=== PATIENT | female | born 1970 | race Hispanic/Latino ===

== ENCOUNTER 2022-05-13 19:52 | Emergency (ER) | payer BC ==
[~2022-05-13] VITALS: Ht 154.9 cm; Wt 77.1 kg
[2022-05-13] MEDS ORDERED: KETOROLAC TROMETHAMINE 60 MG/2 ML VIAL IM ONE (20:30)
[2022-05-13] MEDS ORDERED: ORPHENADRINE CITRATE 30 MG/ML VIAL IM ONE (20:30)
[2022-05-13 20:32] LABS: CLARITY,URINE CLEAR (CLEAR); COLOR,URINE YELLOW (YELLOW)
[2022-05-13 20:33] LABS: KETONES,URINE NEGATIVE (NEGATIVE); LEUKOCYTE ESTERASE ,URINE NEGATIVE (NEGATIVE); NITRITE,URINE NEGATIVE (NEGATIVE); PROTEIN,URINE DIPSTICK NEGATIVE (NEGATIVE); URINE UROBILINOGEN 0.2 mg/dL (0.2 - 1)
[2022-05-13 20:38] LABS: BACTERIA,URINE FEW /HPF; EPITHELIAL CELLS,URINE FEW /LPF; RBC,URINE 0-5 /HPF (0-5); WBC,URINE (MAN) 0-5 /HPF (0-5)
[2022-05-13 20:40] LABS: CALCIUM OXALATE CRYSTALS,UR MANY (FEW)
== END 2022-05-13 21:54 | disposition home or self-care (01) ==
LOC: ER 20:10
DX: M54.41 Lumbago with sciatica, right side (principal); F32.A Depression, unspecified; R51.9 Headache, unspecified; Z98.84 Bariatric surgery status
CPT/HCPCS: 74176; 81001; 99283; J1885; J2360

== ENCOUNTER 2022-08-21 14:00 | Emergency (ER) | payer BC ==
[~2022-08-21] VITALS: Ht 154.9 cm; Wt 77.1 kg
[2022-08-21] MEDS ORDERED: MUCINEX DM ER1 EACH PO (15:53)
== END 2022-08-21 15:59 | disposition home or self-care (01) ==
LOC: ER 14:18
DX: R05.9 Cough, unspecified (principal); J06.9 Acute upper respiratory infection, unspecified; F32.A Depression, unspecified; Z20.822 Contact with and (suspected) exposure to COVID-19; Z98.84 Bariatric surgery status
CPT/HCPCS: 71045; 99283; U0002

== ENCOUNTER → 2022-09-16 | Day surgery (SDC) | payer BC ==
[2022-09-13 10:01] LABS: BASOPHILS % 0.4 % (0.0-1.0); EOSINOPHILS # (AUTO) 0.1 (0.0-0.4); EOSINOPHILS % 1.9 % (0.0-6.0); HEMATOCRIT 40.2 % (34.2-44.1); HEMOGLOBIN 12.6 g/dL (12.0-16.0); LYMPHOCYTES # (AUTO) 1.5 (1.0-3.2); LYMPHOCYTES % 30.6 % (18.0-39.1); MEAN CORPUSCULAR HEMOGLOBIN 29.9 pg (28-32); MEAN CORPUSCULAR HGB CONC 31.3 g/dL (31-35); MEAN CORPUSCULAR VOLUME 95.5 fL (81-99); MONOCYTES # (AUTO) 0.3 (0.2-0.8); MONOCYTES % 7.1 % (4.4-11.3); NEUTROPHILS # (AUTO) 2.9 (2.1-6.9); NEUTROPHILS % 59.8 % (38.7-80.0); PLATELET COUNT 255 x10e3/uL (140-360); RED BLOOD COUNT 4.21 x10e6/uL (3.6-5.1); RED CELL DISTRIBUTION WIDTH 12.8 % (11.7-14.4)
[2022-09-13 10:16] LABS: ANION GAP 15.1 mmol/L (8-16); CALCIUM 8.9 mg/dL (8.4-10.2); CREATININE, SERUM 0.73 mg/dL (0.57-1.11); POTASSIUM 4.1 mmol/L (3.5-5.1)
[~2022-09-16] MED LIST: ACCRUFER30 MG PO; CEFTRIAXONE 1 GM VIAL ONE; DEXAMETHASONE SOD PHOS INJ 4 MG/ML SDV ONE; FENTANYL CITRATE/PF 100MCG/2 ML INJ ONE; GABAPENTIN300 MG PO; IOPAMIDOL 610MG/1ML 300 MG/ML VIAL IV ONE; KETOROLAC TROME10 MG PO; LIDOCAINE HCL 2% LOCAL INJ 5 ML SDV VIAL INJ ONE; MEPERIDINE HCL INJ 25 MG/ML VIAL ONE; METHOCARBAMOL750 MG PO; METOCLOPRAMIDE HCL 10 MG/2ML VIAL ONE; MIDAZOLAM HCL 2 MG/2 ML VIAL ONE; MUCINEX DM ER1 EACH PO; ONDANSETRON HCL INJ 2MG/ML 2ML 2 MG/ML VIAL ONE; PHENAZOPYRIDINE HCL 100 MG TAB ONE; PROPOFOL IV EMULSION 10 MG/ML 20 ML VIAL ONE
[2022-09-16 14:12] VITALS: BP 136/87
== END | disposition home or self-care (01) ==
LOC: OR 10:56
PROVIDERS: ATTEND Urology
DX: N30.10 Interstitial cystitis (chronic) without hematuria (principal); N81.10 Cystocele, unspecified; N81.6 Rectocele; N36.41 Hypermobility of urethra; N28.1 Cyst of kidney, acquired; D64.9 Anemia, unspecified; I10 Essential (primary) hypertension; F32.A Depression, unspecified; Z01.810 Encounter for preprocedural cardiovascular examination; Z01.812 Encounter for preprocedural laboratory examination; Z79.899 Other long term (current) drug therapy
CPT/HCPCS: 36415; 52260; 74420; 80048; 81025; 85025; 93005; C1758; J0696; J1100; J2001; J2175; J2250; J2405; J2704; J2765; J3010; Q9967

== ENCOUNTER 2022-10-10 15:20 | Emergency (ER) | payer BC ==
[~2022-10-10] VITALS: Ht 154.9 cm; Wt 77.1 kg
[~2022-10-10 15:20] MED LIST changes: -CEFTRIAXONE 1 GM VIAL ONE; -DEXAMETHASONE SOD PHOS INJ 4 MG/ML SDV ONE; -FENTANYL CITRATE/PF 100MCG/2 ML INJ ONE; -GABAPENTIN300 MG PO; -IOPAMIDOL 610MG/1ML 300 MG/ML VIAL IV ONE; -KETOROLAC TROME10 MG PO; -LIDOCAINE HCL 2% LOCAL INJ 5 ML SDV VIAL INJ ONE; -MEPERIDINE HCL INJ 25 MG/ML VIAL ONE; -METHOCARBAMOL750 MG PO; -METOCLOPRAMIDE HCL 10 MG/2ML VIAL ONE; -MIDAZOLAM HCL 2 MG/2 ML VIAL ONE; -ONDANSETRON HCL INJ 2MG/ML 2ML 2 MG/ML VIAL ONE; -PHENAZOPYRIDINE HCL 100 MG TAB ONE; -PROPOFOL IV EMULSION 10 MG/ML 20 ML VIAL ONE
[2022-10-10] MEDS ORDERED: KETOROLAC TROMETHAMINE 30 MG/ML VIAL IM STA (15:42)
[2022-10-10] MEDS ORDERED: DEXAMETHASONE SOD PHOS 10 MG/1 ML VIAL IM ONE (15:45)
[2022-10-10] MEDS ORDERED: DEXAMETHASONE SOD PHOS 10 MG/1 ML VIAL ONE (15:55)
[2022-10-10] MEDS ORDERED: GABAPENTIN300 MG PO (15:55)
[2022-10-10] MEDS ORDERED: KETOROLAC TROME10 MG PO (15:55)
[2022-10-10] MEDS ORDERED: METHOCARBAMOL750 MG PO (15:55)
[2022-10-10] MEDS ORDERED: KETOROLAC TROMETHAMINE 30 MG/ML VIAL ONE (15:56)
== END 2022-10-10 15:59 | disposition home or self-care (01) ==
LOC: ER 15:39
DX: M54.41 Lumbago with sciatica, right side (principal); M54.12 Radiculopathy, cervical region; F32.A Depression, unspecified; Z98.84 Bariatric surgery status
CPT/HCPCS: 99283; J1100; J1885